=== PATIENT | male | born 1955 | race Caucasian/White ===

== ENCOUNTER 2021-05-15 00:16 | Inpatient (IN) | payer MEDICARE, OTHER ==
[~2021-05-15] VITALS: Ht 177.8 cm; Wt 71.2 kg
[~2021-05-15 00:16] MED LIST: ASPI81TA63 PO; CLOP75TA28 PO; SERT25TA84 PO; SIMV40TA2 PO
[2021-05-15 01:19] LABS: Urine WBC None Seen /hpf (0 - 3)
[2021-05-15] MEDS ORDERED: SODIUM CHLORIDE 0.9% 1,000 ML IV ONE ×2 (01:30)
[2021-05-15] MEDS ORDERED: AMIODARONE HCL (50 MG/ ML) 3 ML VIAL IV ONE (01:55)
[2021-05-15 01:56] LABS: Basophils # (auto) 0 10 ^3/uL (0-0.2); Basophils % (auto) 0.6 % (0.0-2.0); Eosinophils # (auto) 0.3 10 ^3/uL (0-0.8); Hematocrit 42.3 % (41.0-53.0); Hemoglobin 14.6 g/dL (13.5-17.5); Lymphocytes # (auto) 2.3 10 ^3/uL (0.4-5.4); Lymphocytes % (auto) 34.3 % (10.0-50.0); Mean Corpuscular Hemoglobin 33.2 pg (28.0-32.0); Mean Corpuscular Hgb Conc. 34.5 g/dL (32.0-36.0); Mean Corpuscular Volume 96.1 fL (80.0-100.0); Monocytes # (auto) 0.5 10 ^3/uL (0-1.3); Monocytes % (auto) 7.4 % (0.0-12.0); Neutrophils # (auto) 3.6 10 ^3/uL (1.6-8.6); Neutrophils % (auto) 53.7 % (37.0-80.0); Nucleated Red Blood Cells % 0.1 %; Red Blood Cells 4.41 10^6/uL (4.5-5.90); Red Cell Distribution Width 14.7 % (11.8-14.3); White Blood Cell 6.7 10^3/uL (4.4-10.8)
[2021-05-15] MEDS ORDERED: AMIODARONE HCL 150 MG in D5W 5% 100 ML IV ONE (02:00)
[2021-05-15 02:08] LABS: INR 1.02 (0.9-1.15); Partial Thromboplastin Time 27.2 sec (23.0-31.2)
[2021-05-15 02:19] LABS: Calcium 8.1 mg/dL (8.5-10.1); Chloride 112 mmol/L (98-107); Potassium 3.3 mmol/L (3.5-5.1); Sodium 141 mmol/L (136-145)
[2021-05-15 02:23] LABS: Alanine Aminotransferase 15 U/L (16-61); Albumin 3.3 g/dL (3.4-5.0); Anion Gap 9 (5-15); Aspartate Aminotransferase 12 U/L (15-37); BUN/Creatinine Ratio 18.3; Blood Urea Nitrogen 13 mg/dL (7-18); Carbon Dioxide 20 mmol/L (21-32); GFR African American 142 mL/min; GFR Non-African American 118 mL/min; Glucose 82 mg/dL (74-106)
[2021-05-15 02:29] LABS: Alkaline Phosphatase 54 U/L (45-117); Bilirubin, Total 0.2 mg/dL (0.2-1.0); Total Protein 5.8 g/dL (6.4-8.2)
[2021-05-15 03:14] LABS: Urine Bacteria FEW /hpf (None Seen); Urine Blood TRACE /uL (Negative); Urine Specific Gravity 1.003 (1.001-1.035)
[2021-05-15] MEDS ORDERED: POTASSIUM CHL 20MEQ/100ML 100 ML IV ONE (03:30)
[2021-05-15] MEDS ORDERED: POTASSIUM EFFERVESENT TAB 25 MEQ PO ONE (03:30)
[2021-05-15] MEDS ORDERED: AMIODARONE 450mg/250ml AE 250 ML IV SCH ×2 (04:15→11:45)
[2021-05-15] MEDS ORDERED: MORPHINE SULF INJ 2 MG/ML SYRINGE 1ML IV PRN (05:45)
[2021-05-15] MEDS ORDERED: NITROGLYCERIN 0.4 MG SL TAB SL PRN (05:45)
[2021-05-15] MEDS ORDERED: ONDANSETRON HCL 4 MG/2 ML VIAL IV PRN (05:45)
[2021-05-15] MEDS ORDERED: TEMAZEPAM 15 MG CAP PO PRN (05:45)
[2021-05-15 10:06] VITALS: BP 110/62
[2021-05-15] MEDS: CLOPIDOGREL BISULFATE 75 MG TAB PO SCH (10:12)
[2021-05-15] MEDS: PANTOPRAZOLE 40 MG TAB PO SCH (10:12)
[2021-05-15] MEDS: ASPirin 81 mg TAB PO SCH (10:12)
[2021-05-15] MEDS: ENOXAPARIN SOD 40 MG/0.4 ML SYRINGE SC SCH (10:13)
[2021-05-15] MEDS ORDERED: SERT-160 PO (10:15)
[2021-05-15] MEDS ORDERED: CHOL500021 PO (10:18)
[2021-05-15 10:27] VITALS: BP 110/62
[2021-05-15] MEDS ORDERED: SERTRALINE HCL 50 MG TAB PO ONE (11:30)
[2021-05-15] MEDS ORDERED: FOLIC ACID 1 MG TAB PO ONE (11:45)
[2021-05-15] MEDS ORDERED: THIAMINE HCL 100 MG TAB PO ONE (11:45)
[2021-05-15 13:03] VITALS: BP 117/57
[2021-05-15 14:09] LABS: Barbiturate Scree,Urine NEGATIVE (NEGATIVE)
[2021-05-15 14:12] LABS: Amphetamine Screen, Urine NEGATIVE (NEGATIVE); Benzodiazephine Screen, Urine NEGATIVE (NEGATIVE); Cannabinoid Screen, Urine NEGATIVE (NEGATIVE); Cocaine Screen, Urine NEGATIVE (NEGATIVE); Opiate Scree,Urine NEGATIVE (NEGATIVE); Phencyclidine Screen, Urine NEGATIVE (NEGATIVE)
[2021-05-15 16:44] VITALS: BP 117/63
[2021-05-15 20:00] VITALS: BP 116/68
[2021-05-15 22:00] VITALS: BP 116/68
[2021-05-15] MEDS ORDERED: ATORVASTATIN 20 MG TAB PO SCH (22:00)
[2021-05-16 05:00] VITALS: BP 120/64
[2021-05-16 06:21] LABS: Basophils # (auto) 0.1 10 ^3/uL (0-0.2); Basophils % (auto) 1.1 % (0.0-2.0); Eosinophils # (auto) 0.3 10 ^3/uL (0-0.8); Eosinophils % (auto) 4.6 % (0.0-7.0); Hematocrit 40.7 % (41.0-53.0); Hemoglobin 14.1 g/dL (13.5-17.5); Lymphocytes # (auto) 1.9 10 ^3/uL (0.4-5.4); Lymphocytes % (auto) 32.1 % (10.0-50.0); Mean Corpuscular Hemoglobin 33.2 pg (28.0-32.0); Mean Corpuscular Hgb Conc. 34.7 g/dL (32.0-36.0); Mean Corpuscular Volume 95.9 fL (80.0-100.0); Monocytes # (auto) 0.5 10 ^3/uL (0-1.3); Monocytes % (auto) 8.5 % (0.0-12.0); Neutrophils # (auto) 3.3 10 ^3/uL (1.6-8.6); Neutrophils % (auto) 53.7 % (37.0-80.0); Nucleated Red Blood Cells % 0.1 %; Red Blood Cells 4.24 10^6/uL (4.5-5.90); Red Cell Distribution Width 14.6 % (11.8-14.3); White Blood Cell 6.1 10^3/uL (4.4-10.8)
[2021-05-16 06:37] LABS: BUN/Creatinine Ratio 13.7; Calcium 8.4 mg/dL (8.5-10.1); Potassium 3.9 mmol/L (3.5-5.1)
[2021-05-16] MEDS: ASPirin 81 mg TAB PO SCH (09:54)
[2021-05-16] MEDS: PANTOPRAZOLE 40 MG TAB PO SCH (09:54)
[2021-05-16] MEDS: CLOPIDOGREL BISULFATE 75 MG TAB PO SCH (09:55)
[2021-05-16] MEDS: ENOXAPARIN SOD 40 MG/0.4 ML SYRINGE SC SCH (09:55)
[2021-05-16] MEDS ORDERED: THIAMINE HCL 100 MG TAB PO SCH (10:00)
[2021-05-16] MEDS ORDERED: AMIODARONE HCL 200 MG TAB PO SCH (10:00)
[2021-05-16] MEDS ORDERED: FOLIC ACID 1 MG TAB PO SCH (10:00)
[2021-05-16] MEDS ORDERED: SERTRALINE HCL 50 MG TAB PO SCH (10:00)
[2021-05-16 12:52] VITALS: BP 127/81
[2021-05-16 15:26] VITALS: BP 127/67
== END 2021-05-16 16:10 | disposition home or self-care (01) | DRG 309 ==
LOC: EDBD 00:16 → ER 00:38 → TELE 05:31 → TELE-CENTR 08:54
PROVIDERS: ADMIT Nurse Practitioner; ATTEND Family Medicine
DX: I48.91 Unspecified atrial fibrillation (principal); E44.0 Moderate protein-calorie malnutrition; D68.59 Other primary thrombophilia; E87.6 Hypokalemia; Z66 Do not resuscitate; Z20.822 Contact with and (suspected) exposure to COVID-19; F17.210 Nicotine dependence, cigarettes, uncomplicated; F32.9 Major depressive disorder, single episode, unspecified; I25.10 Atherosclerotic heart disease of native coronary artery without angina pectoris; I25.2 Old myocardial infarction; Z88.8 Allergy status to other drugs, medicaments and biological substances; Z79.01 Long term (current) use of anticoagulants; Z79.02 Long term (current) use of antithrombotics/antiplatelets; Z79.899 Other long term (current) drug therapy; Z79.82 Long term (current) use of aspirin; Z68.22 Body mass index [BMI] 22.0-22.9, adult; Z71.6 Tobacco abuse counseling
CPT/HCPCS: 36415; 71045; 80048; 80053; 80307; 81001; 83735; 83880; 84443; 84484; 85025; 85610; 85730; 87426; 93005; 93306; 96361; 96365; 96366; 96368; G0378; J3480; J7060

== ENCOUNTER 2022-04-18 14:53 | Emergency (ER) | payer OTHER ==
[~2022-04-18] VITALS: Ht 182.9 cm; Wt 81.6 kg
[~2022-04-18 14:53] MED LIST changes: -ASPI81TA63 PO; +CHOL500021 PO; +SERT-160 PO; -SERT25TA84 PO; -SIMV40TA2 PO
[2022-04-18] MEDS ORDERED: LIDOCAINE 1% (LOCAL ANESTH.) PF 5ml SDV ID ONE (16:45)
[2022-04-18] MEDS ORDERED: ONDANSETRON HCL 4 MG/2 ML VIAL IV ONE (17:30)
[2022-04-18] MEDS ORDERED: MORPHINE SULFATE 4 MG/ML SYR/VIAL IV ONE (17:30)
[2022-04-18 21:00] VITALS: BP 143/79
== END 2022-04-18 22:34 | disposition home or self-care (01) ==
LOC: ER 14:53 → EDBD 14:53 → ER 22:34
DX: S22.42XA Multiple fractures of ribs, left side, initial encounter for closed fracture (principal); J93.9 Pneumothorax, unspecified; S09.8XXA Other specified injuries of head, initial encounter; I11.0 Hypertensive heart disease with heart failure; I50.9 Heart failure, unspecified; J44.9 Chronic obstructive pulmonary disease, unspecified; F17.210 Nicotine dependence, cigarettes, uncomplicated; W18.09XA Striking against other object with subsequent fall, initial encounter; Y93.89 Activity, other specified; Y92.89 Other specified places as the place of occurrence of the external cause; Y99.8 Other external cause status
CPT/HCPCS: 32556; 70450; 71045; 71250; 72125; 73030; 96374; 96375; 99285; J2270; J2405

== ENCOUNTER 2025-07-01 15:00 | Inpatient (IN) | payer OTHER, MEDICAID ==
[~2025-07-01] VITALS: Ht 177.8 cm; Wt 61.0 kg
[~2025-07-01 15:00] MED LIST changes: +ATOR40TA52 PO; +BUPR-60 PO; +CLOP75TA70 PO; +TAMS0.4C39 PO; +TIOT17SP INH
--- NOTE | 2025-07-01 15:23 | ED.PDOC ---
General HPI Comments 69 y.o male with PMHx of [place], COPD, CHF, and HTN, presents to the ED for a chief complaint of abdominal distention due to the inability to void. Patient reports his home health nurse replaced his Macias catheter yesterday, noticed it was not draining so nurse came back this morning to replace it once again and states he continues to have no output. Patient now feels distention in his abdomen with heaviness sensation. He states that nurse noticed blood clots when changing the Macias today and advised him to come into the ED. Patient is on blood thinners but is unsure for what reason. He denies any urgency, dysuria, fever, chills, flank/back pain, nausea, vomiting, SOB or chest pain. Chief Complaint: Urinary Time Seen by MD: 15:13 Primary Care Provider: UNKNOWN Reviewed notes: Nurses Notes, Medications, Allergies Allergies: Coded Allergies: Isosorbide Nitrate (Verified Allergy, Mild, DIZZINESS, 01/08/14) Home Meds Reported Medications Cholecalciferol (VITAMIN D) 5,000 Unit Tab, 5000 UNIT PO DAILY, TAB 05/15/21 Sertraline Hcl (Sertraline Hcl) 100 Mg Tab, 100 MG PO DAILY, TAB 05/15/21 Clopidogrel Bisulfate (Plavix) 75 Mg Tab, 75 MG PO QAM, TAB 01/08/14 Information Source: Patient Mode of Arrival: Ambulatory Severity: Moderate Inability to void: None Timing: Days (2) Duration: Since onset Onset: Spontaneous Symptoms: Inability to void History of: Suprapubic catheter Location: Abdomen Modifying factors: None associated signs and symptoms: Inability to Void Past Medical History PAST MEDICAL HISTORY: CHF, COPD, HTN, [place] Surgical History: Denies all surgeries Family History Family History: Reviewed,noncontributory to illness Social History Smoker: Cigarettes, Less Than 1 Pack/Day Alcohol: Occasionally Drugs: Denies Drug Use Lives In: Home Constitutional: denies: chills, diaphoresis, fatigue, fever, malaise, sweats, weakness, others EENTM: denies: blurred vision, double vision, ear bleeding, ear discharge, ear drainage, ear pain, ear ringing, eye pain, eye redness, hearing loss, mouth pain, mouth swelling, nasal discharge, nose bleeding, nose congestion, nose pain, photophobia, tearing, throat pain, throat swelling, voice changes, others Respiratory: denies: cough, hemoptysis, orthopnea, SOB at rest, shortness of breath, SOB with excertion, stridor, wheezing, others Cardiovascular: denies: chest pain, dizzy spells, diaphoresis, Dyspnea on exertion, edema, irregular heart beat, left arm pain, lightheadedness, pal pitations, PND, syncope, others Gastrointestinal: reports: abdominal pain; denies: abdomen distended, blood streaked bowels, constipated, diarrhea, dysphagia, difficulty swallowing, hematemesis, melena, nausea, poor appetite, poor fluid intake, rectal bleeding, rectal pain, vomiting, others Genitourinary: reports: pain; denies: burning, dysuria, flank pain, frequency, hematuria, incontinence, penile discharge, penile sore, testicle pain, testicle swelling, urgency, others Neurological: denies: dizziness, fainting, headache, left sided numbness, left sided weakness, numbness, paresthesia, pre-existing deficit, right sided numbness, right sided weakness, seizure, speech problems, tingling, tremors, weakness, others Musculoskeletal: denies: back pain, gout, joint pain, joint swelling, muscle pain, muscle stiffness, neck pain, others Integumetry: denies: bruises, change in color, change in hair/nails, dryness, laceration, lesions, lumps, rash, wounds, others Allergic/Immunocompromised: denies: Difficulty Healing, Frequent Infections, Hives, Itching, others Hematologic/Lymphatic: denies: anemia, blood clots, easy bleeding, easy bruising, swollen glands, others Endocrine: denies: excessive hunger, excessive sweating, excessive thirst, excessive urination, flushing, intolerance to cold, intolerance to heat, unexplained weight gain, unexplained weight loss, others Psychiatric: denies: anxiety, bipolar disorder, depression, hopeless, panic disorder, schizophrenia, sleepless, suicidal, others All Other Systems: Reviewed and Negative Physical Exam General Appearance: Moderate Distress, Thin HEENT: Normal ENT Inspection, Pharynx Normal, TMs Normal Neck: Full Range of Motion, Non-Tender, Normal, Normal Inspection Respiratory: Chest Non-Tender, Lungs Clear, No Accessory Muscle Use, No Respiratory Distress, Normal Breath Sounds Cardiovascular: Irregular, No Edema, No JVD, No Murmur, No Gallop, Normal P eripheral Pulses, Tachycardia Breast Exam: Deferred Gastrointestinal: No Organomegaly, Non Tender, No Pulsatile Mass, Normal Bowel Sounds, Soft Genitalia: Deferred Pelvic: Deferred Rectal: Deferred Extremities: No calf tenderness, Normal capillary refill, Normal inspection, Normal range of motion, Non-tender, No pedal edema Musculoskeletal : Apperance: Normal Neurologic: Alert, case repairer II-XII nml as Tested, No Motor Deficits, Normal Affect, Normal Mood, No Sensory Deficits Cerebellar Function: NOT DONE Reflexes: NOT DONE Skin: Dry, Normal Color, Warm Peripheral Pulses: 3+ Radial (R), 3+ Radial (L) Lymphatic: No Adenopathy Was a procedure done? Was a procedure done?: No Differential Diagnosis Kidney stone (Female): N/A Urinary Problem (Male): Bladder Outlet, Bladder Obstruction, Urethritis, Urinary Retention, Urolithiasis, UTI X-Ray, Labs, Meds, VS Vital Signs Date Time Temp Pulse Resp B/P (MAP) Pulse Ox O2 Delivery O2 Flow Rate FiO2 07/01/25 15:02 98.2 118 18 132/95 95 98.2 Patient alert. Tachycardic. Urinary retention. Macias catheter in place. Has not drained since yesterday. Possible prostate problem. Saturation pristine on room air. Explained to the patient. Continue monitoring. Time of 1ST Reevaluation: 15:18 Reevaluation 1ST: Unchanged Patient Education/Counseling: Diagnosis, Treatment, Prognosis Family Education/Counseling: Diagnosis, Treatment, Prognosis SEPSIS Sepsis Screen Date sepsis recognized/suspect: Jul 01, 2025 Time Sepsis recognized/suspect: 1505 Recent Procedure: No On Antibiotic Therapy: No Respiratory Rate >20: No Heart Rate >90: No Temp<36 C (96.8 F) or >38.3 C: No SBP <90 or MAP <65 mmHG: No New Acute Mental Status Change: No Is the patient on CPAP, BIPAP,: No Physician Orders Complete Blood Count (07/01/25 15:18) Urinalysis (07/01/25 15:18) Basic Metabolic Panel (07/01/25 15:18) Sodium Chloride 0.9% (07/01/25 15:30) Ok To Change Macias (07/01/25 15:18) Vital Signs Date Time Temp Pulse Resp B/P (MAP) Pulse Ox O2 Delivery O2 Flow Rate FiO2 07/01/25 15:02 98.2 118 18 132/95 95 98.2 Departure 1 Departure Time of Disposition: 15:46 Impression: Primary Impression: Acute abdominal pain Additional Impressions: Prostate hypertrophy Atrial fibrillation with RVR Disposition: ADMITTED INPATIENT Admit to: Med Surg Condition: Guarded Critical Care Note Critical Care Time?: Yes (90 min-critical care time only) Stability Stability form required: No I personally scribed for MOO HALL MD ([email or web address]) on 07/01/25 at 15:23. Electronically submitted by Manuela Palacios ([facility]). MOO HALL MD Jul 01, 2025 15:23
[2025-07-01 15:58] LABS: Hematocrit 41.1 % (41.0-53.0); Hemoglobin 13.7 g/dL (13.5-17.5); Mean Corpuscular Hemoglobin 30.9 pg (28.0-32.0); Mean Corpuscular Volume 93.1 fL (80.0-100.0); Nucleated Red Blood Cells % 0.0 %
[2025-07-01] MEDS: SODIUM CHLORIDE 0.9% 1,000 ML IV ONE (16:03)
[2025-07-01 16:05] LABS: Chloride 99 mmol/L (98-107); Potassium 4.4 mmol/L (3.5-5.1)
[2025-07-01 16:06] LABS: Anion Gap 16 (5-15)
[2025-07-01 16:07] LABS: Calcium 9.3 mg/dL (8.7-10.4)
[2025-07-01 16:12] LABS: BUN/Creatinine Ratio 9.1 (10.0-20.0); Blood Urea Nitrogen 15 mg/dL (9-23)
[2025-07-01 16:20] LABS: Carbon Dioxide 20 mmol/L (20-31); Glucose 61 mg/dL (74-106); Sodium 135 mmol/L (136-145)
[2025-07-01 16:25] VITALS: PULSE 77; RESP 17; O2SAT 94
[2025-07-01 23:29] LABS: Hematocrit 39.2 % (41.0-53.0); Hemoglobin 12.9 g/dL (13.5-17.5); Mean Corpuscular Hemoglobin 31.2 pg (28.0-32.0); Mean Corpuscular Volume 94.7 fL (80.0-100.0); Nucleated Red Blood Cells % 0.1 %
[2025-07-01 23:42] LABS: Alanine Aminotransferase 27 U/L (7-40); Albumin 4.1 g/dL (3.2-4.8); Alkaline Phosphatase 84 U/L (46-116); Anion Gap 18 (5-15); BUN/Creatinine Ratio 10.9 (10.0-20.0); Blood Urea Nitrogen 19 mg/dL (9-23); Calcium 9.3 mg/dL (8.7-10.4); Chloride 102 mmol/L (98-107); Potassium 4.7 mmol/L (3.5-5.1); Sodium 137 mmol/L (136-145); Total Protein 6.4 g/dL (5.7-8.2)
[2025-07-01 23:43] LABS: Bilirubin, Total 0.9 mg/dL (0.2-1.0)
--- NOTE | 2025-07-01 23:46 | DVHHPRES ---
History of Present Illness Resident Creating Document: ALLIE ZAMBRANO RESIDENT History of Present Illness Patient is a 69-year-old male with past medical history of [place] without percutaneous intervention, COPD, questionable CHF, hypertension, who came in due to urinary retention. According to the patient, 2 weeks ago he was hospitalized at [facility] for pneumonia, at the time of discharge he was unable to urinate and was discharged home with a Macias catheter along with home health for Macias catheter management. Per patient, yesterday on 06/30/2025 his home health nurse replace the Macias catheter and ever since he has not been able to void. On review of systems patient is complaining of nausea, inability to void and abdominal pain. Patient is A&O x3, however somewhat of a poor historian and unable to share why he is on Plavix. Past Medical History CHF, COPD, [place], hypertension Past Surgical History Denies Past Social History Smoking: Quit 1 month ago, prior to that was smoking 5 cigarettes per day for the last 10 years Alcohol: Occasionally Drugs: Denies Lives at home Review of Systems Constitutional: No: Fever, Chills, Sweats, Weakness, Malaise, Other Eyes: No: Pain, Vision change, Conjunctivae inflammation, Eyelid inflammation, Other, Redness ENT: No: Ear pain, Ear discharge, Nose pain, Nose discharge, Nose congestion, Mouth pain, Mouth swelling, Throat pain, Throat swelling, Other Respiratory: No: Cough, Dry, Shortness of breath, SOB with excertion, Wheezing, Hemoptysis, Pleuritic Pain, Sputum, Wheezing, Other Cardiovascular: No: Chest Pain, Palpitations, Orthopnea, Paroxysmal Noc. Dyspnea, Edema, Lt Headedness, Other Gastrointestinal: Nausea, Vomiting, Abdominal Pain; No: Diarrhea, Constipation, Melena, Hematochezia, Other Genitourinary: No Dysuria, No Frequency, No Incontinence, No Hematuria; R etention; No Other Musculoskeletal: No: other, neck pain, shoulder pain, arm pain, back pain, hand pain, leg pain, foot pain Skin: No: Rash, Lesions, Jaundice, Bruising, Other Neurological: No: Weakness, Numbness, Incoordination, Change in speech, Confusion, Seizures, Other Allergies: Coded Allergies: Isosorbide Nitrate (Verified Allergy, Mild, DIZZINESS, 01/08/14) Medications Current Medications Medications Dose Ordered Sig/Malissa Route Start Time Stop Time Status Last Admin Dose Admin Clopidogrel Bisulfate 75 mg QAM PO 07/02/25 07:00 Sertraline HCl 100 mg DAILY PO 07/02/25 10:00 Exam Vital Signs Vital Signs Date Time Temp Pulse Resp B/P (MAP) Pulse Ox O2 Delivery O2 Flow Rate FiO2 07/01/25 21:52 97.9 94 17 131/50 (77) 97 97.9 07/01/25 16:25 Room Air* 0 21 General Appearance: Alert, Oriented X3, Cooperative, mild distress HEENT: Atraumatic, PERRLA, EOMI Respiratory: Clear to auscultation, Normal air movement Cardiovascular: Regular rate, Normal S1, Normal S2 Abdominal: Normal bowel sounds, Other (Tenderness to palpation in the lower abdomen) Skin: No rashes, No significant lesion Neuro: Normal speech Psych/Mental Status: Mental status NL Labs/Xrays Labs Test 07/01/25 22:48 07/01/25 15:34 Range/Units White Blood Count 12.8 H 4.4-10.8 10^3/uL Red Blood Count 4.14 L 4.5-5.90 10^6/uL Hemoglobin 12.9 L 13.5-17.5 g/dL Hematocrit 39.2 L 41.0-53.0 % Mean Corpuscular Volume 94.7 80.0-100.0 fL Mean Corpuscular Hemoglobin 31.2 28.0-32.0 pg Mean Corpuscular Hemoglobin Concent 32.9 32.0-36.0 g/dL Red Cell Distribution Width 16.0 H 11.8-14.3 % Platelet Count 227 140-450 10^3/uL Mean Platelet Volume 8.6 6.9-10.8 fL Neutrophils (%) (Auto) 84.2 H 37.0-80.0 % Lymphocytes (%) (Auto) 6.7 L 10.0-50.0 % Monocytes (%) (Auto) 8.7 0.0-12.0 % Eosinophils (%) (Auto) 0.1 0.0-7.0 % Basophils (%) (Auto) 0.3 0.0-2.0 % Neutrophils # (Auto) 10.8 H 1.6-8.6 10 ^3/uL Lymphocytes # (Auto) 0.9 0.4-5.4 10 ^3/uL Monocytes # (Auto) 1.1 0-1.3 10 ^3/uL Eosinophils # (Auto) 0 0-0.8 10 ^3/uL Basophils # (Auto) 0 0-0.2 10 ^3/uL Nucleated Red Blood Cells 0.1 % SEPSIS Sepsis Screen Date sepsis recognized/suspect: Jul 01, 2025 Time Sepsis recognized/suspect: 1504 Recent Procedure: No On Antibiotic Therapy: No Respiratory Rate >20: No Heart Rate >90: No Temp<36 C (96.8 F) or >38.3 C: No SBP <90 or MAP <65 mmHG: No New Acute Mental Status Change: No Is the patient on CPAP, BIPAP,: No Physician Orders Admit (07/01/25 21:37) Allergies (07/01/25 21:37) Code Status (07/01/25 21:37) Complete Blood Count (07/02/25 04:00) Comprehensive Metabolic Panel (07/02/25 04:00) Cardiac Diet-2gna,Lofat,Lochol (07/02/25 Breakfast) Condition: Unstable (07/01/25 21:37) Notify Md Of Changes From Base (07/01/25 21:37) Bladder Scan (07/01/25 ) D/C Macias (07/01/25 21:37) Insert Macias Catheter QSHIFT (07/01/25 21:37) Psa Total+% Free (07/01/25 21:40) Comprehensive Metabolic Panel (07/01/25 22:37) Clopidogrel Bisulfate (Plavix) (07/02/25 07:00) Sertraline Hcl (Zoloft) (07/02/25 10:00) Pharmacy To Reconcile Home Med (07/01/25 22:37) Communication Order (07/01/25 22:37) Vital Signs Date Time Temp Pulse Resp B/P (MAP) Pulse Ox O2 Delivery O2 Flow Rate FiO2 07/01/25 21:52 97.9 94 17 131/50 (77) 97 97.9 07/01/25 20:38 97.9 94 18 122/74 (90) 99 97.9 07/01/25 18:23 98.0 97 18 108/51 (70) 98 98.0 07/01/25 16:25 77 17 94 Room Air* 0 21 07/01/25 16:00 97.9 108 16 93/63 (63) 93 97.9 Laboratory Tests Test 07/01/25 15:34 07/01/25 22:48 White Blood Count 11.2 10^3/uL (4.4-10.8) H 12.8 10^3/uL (4.4-10.8) H Medications Medications Dose Ordered Sig/Malissa Route Start Time Stop Time Status Last Admin Dose Admin Sodium Chloride 1,000 ml @ 1,000 mls/hr Q1H ONCE IV 07/01/25 15:30 07/01/25 16:29 DC 07/01/25 16:03 1,000 MLS/HR Assessment/Plan Assessment/Plan Acute urinary retention BELLA due to above/VMN Hematuria likely due to benign prostatic hyperplasia Obstructive nephropathy Acute complicated UTI Sepsis due to above - bladder scan revealed greater than 900 mL - replaced Macias, however minimal drainage of about 50 mL - manual irrigation with catheter tip syringe, we will consider CBI if manual irrigation fails - IV D5W with NS at 75 cc/hour, IV NS 1 L bolus - IV ceftriaxone - consulted Urology - ordered serum PSA COPD, currently stable - ipratropium albuterol med nebs as needed History of CHF, systolic versus diastolic Essential hypertension Coronary artery disease - ordered echocardiogram - ordered BNP - resumed home medication Plavix Depression, likely MDD - resumed home medication sertraline DVT prophylaxis: Currently holding as patient notes some blood clots by home health RN while exchanging the Macias yesterday Goals of care: Full code, discussed for >16 minutes on 07/01/2025 Plan discussed with patient Plan discussed with Dr. Bergeron Plan discussed with: Patient, Other (RN) My Orders Orders - ALLIE ZAMBRANO RESIDENT Procedure Category Date Status Time Admit ADMIT 07/01/25 Transmitted 21:37 Allergies RONDA 07/01/25 In Process 21:37 Code Status CODE 07/01/25 Transmitted 21:37 Complete Blood Count LAB 07/02/25 Verified 04:00 Comprehensive LAB 07/02/25 Verified Metabolic Panel 04:00 Cardiac DIET 07/02/25 Transmitted Diet-2gna,Lofat,Lochol Breakfast Condition: Unstable RONDA 07/01/25 In Process 21:37 Notify Of Changes RONDA 07/01/25 In Process From Base 21:37 Bladder Scan ED NURSING 07/01/25 Transmitted D/C Macias RONDA 07/01/25 In Process 21:37 Insert Macias Catheter RONDA 07/01/25 In Process 21:37 Psa Total+% Free LAB 07/01/25 In Process 21:40 Comprehensive LAB 07/01/25 In Process Metabolic Panel 22:37 Clopidogrel Bisulfate PHA 07/02/25 In Process (Plavix) 07:00 Sertraline Hcl PHA 07/02/25 In Process (Zoloft) 10:00 Pharmacy To Reconcile ORDERS 07/01/25 Transmitted Home Med 22:37 Communication Order ORDERS 07/01/25 Transmitted 22:37 Date of Service: Jul 01, 2025 Billing Provider: CATARINO BERGERON MD Common Visit Codes: [id number] INP/OBS CARE (HIGH) Secondary Visit Codes: [id number] CARE PLAN 30 MINUTES ALLIE ZAMBRANO RESIDENT Jul 01, 2025 23:46
[2025-07-01 23:59] LABS: Carbon Dioxide 17 mmol/L (20-31)
[2025-07-02] VITALS (11 sets, daily range): BP systolic 94–125; BP diastolic 45–69; PULSE 83–95; RESP 12–20; TEMP 97.8–99.2; O2SAT 94–97
[2025-07-02] LABS: Glucose 38 mg/dL (74-106)
[2025-07-02] MEDS ORDERED: IPRATROPIUM BROM 0.5 MG/2.5ML INH SOL NEB PRN (01:30)
[2025-07-02] MEDS ORDERED: ALBUTEROL SULF 2.5 MG/0.5ML(0.5%) NEB SOLN NEB PRN (01:30)
[2025-07-02 02:51] LABS: COVID19 ANTIGEN SOFIA FIA NEGATIVE (NEGATIVE)
[2025-07-02] MEDS: HYDROcodone-ACET 7.5/325MG TAB PO PRN (04:35)
[2025-07-02] MEDS: LIDOCAINE HCL 2% TOP JELLY 5ML TOP ONE (05:05)
[2025-07-02] MEDS: LIDOCAINE 2% TOPICAL JELLY 5 ML URJT TOP ONE (05:14)
--- NOTE | 2025-07-02 05:15 | POSTOP ---
Post-Operative Note Post-Operative Note Preop Diagnosis urinary retention Postop Diagnosis: same Operation performed complex cath Specimen none Anesthesia: Local Anesthesiologist: no Blood Loss(fluid mgmt) minimal Tourniquet Time na Surgeon Gina Joya Vacuum Frame Operator no Implant [address] using guide wire Complications & Mgmt no Date 07/02/25 Time 05:10 GINA JOYA MD Jul 02, 2025 05:15
[2025-07-02] MEDS: D5W/SOD CHLO 0.9% 1,000 ML IV ONE (05:36)
[2025-07-02] MEDS: TAMSULOSIN HYDROCHLORIDE 0.4 MG CAP PO ONE (05:48)
[2025-07-02 06:18] LABS: Urine Protein, UAD 1+ (Negative)
[2025-07-02] MEDS: CLOPIDOGREL BISULFATE 75 MG TAB PO SCH (07:00)
--- NOTE | 2025-07-02 07:46 | DVH ---
CHEST RADIOGRAPH Indication: sob Technique: Single frontal view of the chest was obtained COMPARISON: CHEST PORTABLE on DOS: 04/18/22, CHEST PORTABLE on DOS: 04/18/22, CXRP on DOS: 04/18/22, BRITANY ST WITHOUT CONTRAST on DOS: 04/18/22, CXRP on DOS: 04/18/22 FINDINGS: Lines and Tubes: None Lungs: Left upper lobe opacity. Pleura: No effusion. No pneumothorax. Cardiomediastinal contours: Unremarkable Bones: Chronic left rib fractures IMPRESSION: Subtle left upper lobe opacity. This may represent pneumonia
[2025-07-02 08:08] LABS: Hematocrit 33.3 % (41.0-53.0); Hemoglobin 11.3 g/dL (13.5-17.5); Mean Corpuscular Hemoglobin 31.6 pg (28.0-32.0); Mean Corpuscular Volume 93.4 fL (80.0-100.0); Nucleated Red Blood Cells % 0.0 %
[2025-07-02 08:26] LABS: Alanine Aminotransferase 27 U/L (7-40); Albumin 3.2 g/dL (3.2-4.8); Alkaline Phosphatase 64 U/L (46-116); Anion Gap 20 (5-15); BUN/Creatinine Ratio 13.3 (10.0-20.0); Bilirubin, Total 0.5 mg/dL (0.2-1.0); Blood Urea Nitrogen 22 mg/dL (9-23); Calcium 8.7 mg/dL (8.7-10.4); Chloride 101 mmol/L (98-107); Potassium 4.2 mmol/L (3.5-5.1); Sodium 136 mmol/L (136-145)
[2025-07-02 08:36] LABS: Carbon Dioxide 15 mmol/L (20-31); Glucose 69 mg/dL (74-106); Total Protein 5.3 g/dL (5.7-8.2)
[2025-07-02] MEDS: SERTRALINE HCL 50 MG TAB PO SCH (09:42)
[2025-07-02] MEDS: TAMSULOSIN HYDROCHLORIDE 0.4 MG CAP PO SCH (17:18)
--- NOTE | 2025-07-02 19:56 | DVHPN2 ---
Subjective Patient is seen at bedside, doing well. Reviewed: Care Plan Changes from previous H/P or p: No Changes General: Per HPI Eyes: No Pain, No Vision change, No Conjunctivae inflammation, No Eyelid inflammation, No Other, No Redness ENT: No Ear pain, No Ear discharge, No Nose pain, No Nose discharge, No Nose congestion, No Mouth pain, No Mouth swelling, No Throat pain, No Throat swelling, No Other Cardiovascular: No Chest Pain, No Palpitations, No Orthopnea, No Paroxysmal Noc. Dyspnea, No Edema, No Lt Headedness, No Other Respiratory: No Cough, No Dry, No Shortness of breath, No SOB with excertion, No Wheezing, No Hemoptysis, No Pleuritic Pain, No Sputum, No Other Gastrointestinal: Nausea, Vomiting, Abdominal Pain; No Diarrhea, No Constipation, No Melena, No Hematochezia, No Other Genitourinary: No Dysuria, No Frequency, No Incontinence, No Hematuria; R etention; No Other Musculoskeletal: No other, No neck pain, No shoulder pain, No arm pain, No back pain, No hand pain, No leg pain, No foot pain Skin: No Rash, No Lesions, No Jaundice, No Bruising, No Other Objective Vitals Vital Signs Date Time Temp Pulse Resp B/P (MAP) Pulse Ox O2 Delivery O2 Flow Rate FiO2 07/02/25 18:00 97 Room Air 0.0 07/02/25 18:00 21 07/02/25 17:00 98.3 91 16 95/45 (62) 98.3 Intake/Output Intake and Output 07/02/25 07:00 Intake Total 1356 ml Balance 1356 ml Intake Oral 356 ml IV Total 1000 ml Exam GEN: Healthy appearing, well-developed, NAD. HEENT: NC/AT; MMM. CV: RRR, no m/r/g. LUNGS: CTAB, no w/r/c. ABD: Soft, NT/ND, NBS, no masses or organomegaly. EXT: skin Warm, well perfused. no rashes. No clubbing, cyanosis, or edema. Genitourinary: Patient has Macias, Macias with clear with some pink tinge urine NEURO: Ambulating with no limitations. No focal deficits. Medications Current Medications Medications Dose Ordered Sig/Malissa Route Start Time Stop Time Status Last Admin Dose Admin Sertraline HCl 100 mg DAILY PO 07/02/25 10:00 07/02/25 09:42 100 MG Ceftriaxone Sodium 50 ml @ 100 mls/hr DAILY@09 IV 07/03/25 09:00 Ipratropium [place] 0.5 mg Q6HPRN PRN NEB 07/02/25 01:30 Albuterol 2.5 mg Q8HPRN PRN NEB 07/02/25 01:30 Tamsulosin HCl 0.4 mg QPM PO 07/02/25 18:00 07/02/25 17:18 0.4 MG Acetaminophen/ Hydrocodone Bitart 1 tab Q6HP PRN PO 07/02/25 04:15 07/02/25 04:35 1 TAB Laboratory Results Laboratory Tests 07/02/25 07:36 Chemistry Test 07/01/25 22:48 07/02/25 07:36 Albumin 4.1 g/dL (3.2-4.8) 3.2 g/dL (3.2-4.8) Calcium Level 9.3 mg/dL (8.7-10.4) 8.7 mg/dL (8.7-10.4) Total Protein 6.4 g/dL (5.7-8.2) 5.3 g/dL (5.7-8.2) L Cardiac Markers Test 07/01/25 22:48 B-Type Natriuretic Peptide 74.81 pg/mL (0-100) LFT Test 07/01/25 22:48 07/02/25 07:36 Alanine Aminotransferase (ALT) 27 U/L (7-40) 27 U/L (7-40) Alkaline Phosphatase 84 U/L (46-116) 64 U/L (46-116) Aspartate Amino Transferase (AST) 31 U/L (13-40) 30 U/L (13-40) Total Bilirubin 0.9 mg/dL (0.2-1.0) 0.5 mg/dL (0.2-1.0) Urinalysis Test 07/02/25 05:00 Urine Color Light-brown (Yellow) Urine Clarity Turbid (Clear) H Urine pH 6.0 (5.0-9.0) Urine Specific [place] 1.010 (1.001-1.035) Urine Protein 1+ (Negative) H Urine Ketones 1+ (Negative) H Urine Blood 3+ /uL (Negative) H Urine Nitrite Negative (Negative) Urine Bilirubin Negative (Negative) Urine Urobilinogen Normal mg/dL (Negative) Urine Leukocyte Esterase 3+ /uL (Negative) Urine RBC 1250 /hpf (0 - 3) Urine Microscopic WBC 547 /HPF (0-3) H Urine Squamous Epithelial Cells None seen /hpf (<5) Urine Bacteria Few /hpf (None Seen) H Urine Glucose Normal mg/dL (Normal) Microbiology Microbiology Date/Time Source Procedure Growth Status 07/02/25 02:00 Nose MRSA Screen - Final Complete Labs and/or images reviewed: Labs reviewed by me, Image(s) reviewed by me Assessment/Plan Assessment/Plan Patient is a 69-year-old male with past medical history of [place] without percutaneous intervention, COPD, questionable CHF, hypertension, who came in due to urinary retention. According to the patient, 2 weeks ago he was hospitalized at [facility] for pneumonia, at the time of discharge he was unable to urinate and was discharged home with a Macias catheter along with home health for Macias catheter management. Per patient, yesterday on 06/30/2025 his home health nurse replace the Macias catheter and ever since he has not been able to void. On review of systems patient is complaining of nausea, inability to void and abdominal pain. Patient is A&O x3, however somewhat of a poor historian and unable to share why he is on Plavix. 07/02: Patient is difficult urinary catheterization, unsuccessful x2 with bladder distended, positive on bladder scan, patient is symptomatic. Urology did procedure and inserted 3 way Amcias and CBI is continuing right now. We will continue to follow up with Urology. Continuing IV antibiotics. Acute urinary retention BELLA due to above/VMN Hematuria likely due to benign prostatic hyperplasia Obstructive nephropathy Acute complicated UTI Sepsis due to above COPD, currently stable History of CHF, systolic versus diastolic Essential hypertension Coronary artery disease Depression, likely MDD - replaced Macias - CBI - IV D5W with NS - IV ceftriaxone - consulted Urology - ipratropium albuterol med nebs as needed - ordered echocardiogram - ordered BNP - resumed home medication Plavix - resumed home medication sertraline Med surge Full code Plan discussed with: Patient Date of Service: Jul 02, 2025 Billing Provider: SNOW ROLDAN MD Common Visit Codes: [id number] INP/OBS CARE(HIGH) SNOW ROLDAN MD Jul 02, 2025 19:56
[2025-07-03] VITALS (11 sets, daily range): BP systolic 98–109; BP diastolic 50–80; PULSE 69–88; RESP 16–20; TEMP 97.8–98.6; O2SAT 94–98
[2025-07-03 07:21] LABS: Hematocrit 28.7 % (41.0-53.0); Hemoglobin 9.8 g/dL (13.5-17.5); Mean Corpuscular Hemoglobin 31.9 pg (28.0-32.0); Mean Corpuscular Volume 93.2 fL (80.0-100.0); Nucleated Red Blood Cells % 0.0 %
[2025-07-03 07:36] LABS: Alanine Aminotransferase 19 U/L (7-40); Alkaline Phosphatase 59 U/L (46-116); Anion Gap 14 (5-15); BUN/Creatinine Ratio 10.7 (10.0-20.0); Bilirubin, Total 0.3 mg/dL (0.2-1.0); Blood Urea Nitrogen 13 mg/dL (9-23); Carbon Dioxide 22 mmol/L (20-31); Chloride 104 mmol/L (98-107); Potassium 3.7 mmol/L (3.5-5.1); Sodium 140 mmol/L (136-145)
[2025-07-03 07:47] LABS: Albumin 3.0 g/dL (3.2-4.8); Calcium 8.5 mg/dL (8.7-10.4); Glucose 71 mg/dL (74-106); Total Protein 5.0 g/dL (5.7-8.2)
--- NOTE | 2025-07-03 15:58 | DVHPN2 ---
Subjective Patient is seen at bedside, doing well. Reviewed: Care Plan Changes from previous H/P or p: No Changes General: Per HPI Eyes: No Pain, No Vision change, No Conjunctivae inflammation, No Eyelid inflammation, No Other, No Redness ENT: No Ear pain, No Ear discharge, No Nose pain, No Nose discharge, No Nose congestion, No Mouth pain, No Mouth swelling, No Throat pain, No Throat swelling, No Other Cardiovascular: No Chest Pain, No Palpitations, No Orthopnea, No Paroxysmal Noc. Dyspnea, No Edema, No Lt Headedness, No Other Respiratory: No Cough, No Dry, No Shortness of breath, No SOB with excertion, No Wheezing, No Hemoptysis, No Pleuritic Pain, No Sputum, No Other Gastrointestinal: Nausea, Vomiting, Abdominal Pain; No Diarrhea, No Constipation, No Melena, No Hematochezia, No Other Genitourinary: No Dysuria, No Frequency, No Incontinence, No Hematuria; R etention; No Other Musculoskeletal: No other, No neck pain, No shoulder pain, No arm pain, No back pain, No hand pain, No leg pain, No foot pain Skin: No Rash, No Lesions, No Jaundice, No Bruising, No Other Objective Vitals Vital Signs Date Time Temp Pulse Resp B/P (MAP) Pulse Ox O2 Delivery O2 Flow Rate FiO2 07/03/25 12:57 98.2 79 16 99/55 (70) 97 98.2 07/03/25 10:00 Room Air 0.0 07/03/25 10:00 21 Intake/Output Intake and Output 07/03/25 07:00 Intake Total 400 ml Output Total 1925 ml Balance -1525 ml Intake Oral 400 ml Output Urine Total 1925 ml Exam GEN: Healthy appearing, well-developed, NAD. HEENT: NC/AT; MMM. CV: RRR, no m/r/g. LUNGS: CTAB, no w/r/c. ABD: Soft, NT/ND, NBS, no masses or organomegaly. EXT: skin Warm, well perfused. no rashes. No clubbing, cyanosis, or edema. Genitourinary: Patient has Macias, Macias with clear with some pink tinge urine NEURO: Ambulating with no limitations. No focal deficits. Medications Current Medications Medications Dose Ordered Sig/Malissa Route Start Time Stop Time Status Last Admin Dose Admin Sertraline HCl 100 mg DAILY PO 07/02/25 10:00 07/03/25 09:56 100 MG Ceftriaxone Sodium 50 ml @ 100 mls/hr DAILY@09 IV 07/03/25 09:00 07/03/25 09:56 100 MLS/HR Ipratropium [place] 0.5 mg Q6HPRN PRN NEB 07/02/25 01:30 Albuterol 2.5 mg Q8HPRN PRN NEB 07/02/25 01:30 Tamsulosin HCl 0.4 mg QPM PO 07/02/25 18:00 07/02/25 17:18 0.4 MG Acetaminophen/ Hydrocodone Bitart 1 tab Q6HP PRN PO 07/02/25 04:15 07/02/25 04:35 1 TAB Laboratory Results Laboratory Tests 07/03/25 06:08 Chemistry Test 07/03/25 06:08 Albumin 3.0 g/dL (3.2-4.8) L Calcium Level 8.5 mg/dL (8.7-10.4) L Total Protein 5.0 g/dL (5.7-8.2) L LFT Test 07/03/25 06:08 Alanine Aminotransferase (ALT) 19 U/L (7-40) Alkaline Phosphatase 59 U/L (46-116) Aspartate Amino Transferase (AST) 25 U/L (13-40) Total Bilirubin 0.3 mg/dL (0.2-1.0) Urinalysis Test 07/02/25 05:00 Urine Color Light-brown (Yellow) Urine Clarity Turbid (Clear) H Urine pH 6.0 (5.0-9.0) Urine Specific [place] 1.010 (1.001-1.035) Urine Protein 1+ (Negative) H Urine Ketones 1+ (Negative) H Urine Blood 3+ /uL (Negative) H Urine Nitrite Negative (Negative) Urine Bilirubin Negative (Negative) Urine Urobilinogen Normal mg/dL (Negative) Urine Leukocyte Esterase 3+ /uL (Negative) Urine RBC 1250 /hpf (0 - 3) Urine Microscopic WBC 547 /HPF (0-3) H Urine Squamous Epithelial Cells None seen /hpf (<5) Urine Bacteria Few /hpf (None Seen) H Urine Glucose Normal mg/dL (Normal) Microbiology Microbiology Date/Time Source Procedure Growth Status 07/02/25 05:00 Voided Urine Urine Culture - Preliminary Resulted 07/02/25 02:00 Nose MRSA Screen - Final Complete Labs and/or images reviewed: Labs reviewed by me, Image(s) reviewed by me Assessment/Plan Assessment/Plan Patient is a 69-year-old male with past medical history of [place] without percutaneous intervention, COPD, questionable CHF, hypertension, who came in due to urinary retention. According to the patient, 2 weeks ago he was hospitalized at [facility] for pneumonia, at the time of discharge he was unable to urinate and was discharged home with a Macias catheter along with home health for Macias catheter management. Per patient, yesterday on 06/30/2025 his home health nurse replace the Macias catheter and ever since he has not been able to void. On review of systems patient is complaining of nausea, inability to void and abdominal pain. Patient is A&O x3, however somewhat of a poor historian and unable to share why he is on Plavix. 07/02: Patient is difficult urinary catheterization, unsuccessful x2 with bladder distended, positive on bladder scan, patient is symptomatic. Urology did procedure and inserted 3 way Macias and CBI is continuing right now. We will continue to follow up with Urology. Continuing IV antibiotics. 07/03: We will follow up with Urology 1 more day. Developed discharge plan with Urology by tomorrow likely discharge tomorrow. Acute urinary retention BELLA due to above/VMN Hematuria likely due to benign prostatic hyperplasia Obstructive nephropathy Acute complicated UTI Sepsis due to above COPD, currently stable History of CHF, systolic versus diastolic Essential hypertension Coronary artery disease Depression, likely MDD - replaced Macias - CBI - IV D5W with NS - IV ceftriaxone - consulted Urology - ipratropium albuterol med nebs as needed - ordered echocardiogram - ordered BNP - resumed home medication Plavix - resumed home medication sertraline Med surge Full code Plan discussed with: Patient Date of Service: Jul 03, 2025 Billing Provider: SNOW ROLDAN MD Common Visit Codes: [id number] INP/OBS CARE(HIGH) SNOW ROLDAN MD Jul 03, 2025 15:58
[2025-07-03] MEDS: IBUPROFEN 600 MG TAB PO ONE (18:45)
[2025-07-04] VITALS (10 sets, daily range): BP systolic 98–119; BP diastolic 59–69; PULSE 68–87; RESP 18–20; TEMP 97.7–98.5; O2SAT 95–98
[2025-07-04] MEDS: PANTOPRAZOLE 40 MG TAB PO SCH (05:17)
[2025-07-04] MEDS ORDERED: TAMSULOSIN HYDROCHLORIDE 0.4 MG CAP PO SCH (09:30)
--- NOTE | 2025-07-04 09:31 | DVHINCON2 ---
Date of service: Jul 04, 2025 Referring Physician Hospitalist Reason for Consultation urinary retention History of Present Illness History Source: Patient, RN Notes, MD Notes, Old Records Exam Limitations: No limitations HPI 69 yo male PMH anxiety, HLD, [place], CHF, COPD and AFIB on Eliquis presented with acute urinary retention and hematuria with blood clots. He was d/c from [facility] 06/03/[address]. While admitted at [facility] he was seen in consult by Dr. Joya who had recommended increasing his flomax to BID. He returned to [facility] 06/19 and 06/22 asking for giraldo to be removed. HHN attempted to exchange it unsuccessfully. On arrival he had >1 liter of retained urine. RNs were unable to place giraldo and Dr. Joya urologist associate application developer was notified. He place a 16f tribe tip over guidewire bedside. Creatinine has trended down since giraldo placement from 1.64 to 1.22. Hgb has dropped from 13.7 to 9.8. preliminary urine culture shows >100k CFU GNRs. His giraldo is draining light leona, eliquis has been held. Vitals are stable and he is afebrile and comfortable at this time. PT INR pending. last known PSA 01/19/24 2.0 Home Meds Reported Medications Cholecalciferol (VITAMIN D) 5,000 Unit Tab, 5000 UNIT PO DAILY, TAB 05/15/21 Sertraline Hcl (Sertraline Hcl) 100 Mg Tab, 100 MG PO DAILY, TAB 05/15/21 Clopidogrel Bisulfate (Plavix) 75 Mg Tab, 75 MG PO QAM, TAB 01/08/14 Past Medical History Cardiac: AFIB, CHF, [place] Pulmonary: COPD Psychiatric: Anxiety, Depression Renal/: Benign prostatic enlarg. Patient Family History: Cardiovascular disease G8 FATHER Chronic obstructive pulmonary disease G8 MOTHER Diabetes mellitus G8 MOTHER FH: lung cancer FH: smoking Smoker: No Hx (Negative) Alocohol: None Drugs: None Domestic Violence: Neg Review of Systems Genitourinary: Hematuria, Retention, Pain H&P Exam Vital Signs Vital Signs Date Time Temp Pulse Resp B/P (MAP) Pulse Ox O2 Delivery O2 Flow Rate FiO2 07/04/25 05:00 97.9 72 18 111/67 (82) 96 97.9 07/03/25 20:00 Room Air* 0 21 Labs/Xrays Labs Test 07/03/25 06:08 07/02/25 07:36 07/02/25 05:00 07/02/25 02:34 Range/Units White Blood Count 5.5 # 4.4-10.8 10^3/uL Red Blood Count 3.08 L 4.5-5.90 10^6/uL Hemoglobin 9.8 L 13.5-17.5 g/dL Hematocrit 28.7 #L 41.0-53.0 % Mean Corpuscular Volume 93.2 80.0-100.0 fL Mean Corpuscular Hemoglobin 31.9 28.0-32.0 pg Mean Corpuscular Hemoglobin Concent 34.3 32.0-36.0 g/dL Red Cell Distribution Width 16.1 H 11.8-14.3 % Platelet Count 188 140-450 10^3/uL Mean Platelet Volume 8.2 6.9-10.8 fL Neutrophils (%) (Auto) 77.2 37.0-80.0 % Lymphocytes (%) (Auto) 10.9 10.0-50.0 % Monocytes (%) (Auto) 9.5 0.0-12.0 % Eosinophils (%) (Auto) 1.7 0.0-7.0 % Basophils (%) (Auto) 0.7 0.0-2.0 % Neutrophils # (Auto) 4.3 1.6-8.6 10 ^3/uL Lymphocytes # (Auto) 0.6 0.4-5.4 10 ^3/uL Monocytes # (Auto) 0.5 0-1.3 10 ^3/uL Eosinophils # (Auto) 0.1 0-0.8 10 ^3/uL Basophils # (Auto) 0 0-0.2 10 ^3/uL Nucleated Red Blood Cells 0.0 % Sodium Level 140 136-145 mmol/L Potassium Level 3.7 3.5-5.1 mmol/L Chloride Level 104 98-107 mmol/L Carbon Dioxide Level 22 20-31 mmol/L Anion Gap 14 5-15 Blood Urea Nitrogen 13 9-23 mg/dL Creatinine 1.22 0.700-1.30 mg/dL Glomerular Filtration Rate Calc 63 >90 mL/min BUN/Creatinine Ratio 10.7 10.0-20.0 Serum Glucose 71 L 74-106 mg/dL Calcium Level 8.5 L 8.7-10.4 mg/dL Total Bilirubin 0.3 0.2-1.0 mg/dL Aspartate Amino Transferase (AST) 25 13-40 U/L Alanine Aminotransferase (ALT) 19 7-40 U/L Alkaline Phosphatase 59 46-116 U/L Total Protein 5.0 L 5.7-8.2 g/dL Albumin 3.0 L 3.2-4.8 g/dL Lactic Acid Level 0.5 0.4-2.0 mmol/L Urine Color Light-brown Yellow Urine Clarity Turbid H Clear Urine pH 6.0 5.0-9.0 Urine Specific [place] 1.010 1.001-1.035 Urine Protein 1+ H Negative Urine Ketones 1+ H Negative Urine Blood 3+ H Negative /uL Urine Nitrite Negative Negative Urine Bilirubin Negative Negative Urine Urobilinogen Normal Negative mg/dL Urine Leukocyte Esterase 3+ Negative /uL Urine RBC 1250 0 - 3 /hpf Urine Microscopic WBC 547 H 0-3 /HPF Urine Squamous Epithelial Cells None seen <5 /hpf Urine Bacteria Few H None Seen /hpf Urine Glucose Normal Normal mg/dL POC Glucose 89 70-106 mg/dl Test 07/01/25 23:59 07/01/25 22:48 07/01/25 15:34 Range/Units Influenza Type A Antigen Negative Negative Influenza Type B Antigen Negative Negative SARS-CoV-2 Antigen (Rapid) Negative NEGATIVE B-Type Natriuretic Peptide 74.81 0-100 pg/mL Microbiology Date/Time Source Procedure Growth Status 07/02/25 05:00 Voided Urine Urine Culture - Preliminary Resulted 07/02/25 02:00 Nose MRSA Screen - Final Complete Assessment/Plan Problem List: (1) UTI (urinary tract infection) (2) BELLA (acute kidney injury) (3) Anemia (4) Acute urinary retention (5) Nicotine dependence (6) Atrial fibrillation with RVR (7) Prostate hypertrophy Plan hold eliquis, must be held a minimum of 3 days prior to any surgical intervention keep giraldo treat UTI, no intervention until treated appropriately smoking cessation cystoscopy TBA Plan discussed with: Patient, Other SADA SEGURA NP Jul 04, 2025 09:31
[2025-07-04 10:22] LABS: INR 0.96 (0.9-1.15); Prothrombin Time 10.2 sec (9.3-11.8)
[2025-07-04] MEDS: FINASTERIDE 5 MG TAB PO SCH (10:24)
[2025-07-04] MEDS: TAMSULOSIN HYDROCHLORIDE 0.4 MG CAP PO SCH (10:24)
[2025-07-04 13:07] LABS: Prostate Specific Antigen 2.2 ng/mL (0.0-4.0)
--- NOTE | 2025-07-04 14:45 | DVHPN2 ---
Subjective Patient is seen at bedside, doing well. Reviewed: Care Plan Changes from previous H/P or p: No Changes General: Per HPI Eyes: No Pain, No Vision change, No Conjunctivae inflammation, No Eyelid inflammation, No Other, No Redness ENT: No Ear pain, No Ear discharge, No Nose pain, No Nose discharge, No Nose congestion, No Mouth pain, No Mouth swelling, No Throat pain, No Throat swelling, No Other Cardiovascular: No Chest Pain, No Palpitations, No Orthopnea, No Paroxysmal Noc. Dyspnea, No Edema, No Lt Headedness, No Other Respiratory: No Cough, No Dry, No Shortness of breath, No SOB with excertion, No Wheezing, No Hemoptysis, No Pleuritic Pain, No Sputum, No Other Gastrointestinal: Nausea, Vomiting, Abdominal Pain; No Diarrhea, No Constipation, No Melena, No Hematochezia, No Other Genitourinary: No Dysuria, No Frequency, No Incontinence, No Hematuria; R etention; No Other Musculoskeletal: No other, No neck pain, No shoulder pain, No arm pain, No back pain, No hand pain, No leg pain, No foot pain Skin: No Rash, No Lesions, No Jaundice, No Bruising, No Other Objective Vitals Vital Signs Date Time Temp Pulse Resp B/P (MAP) Pulse Ox O2 Delivery O2 Flow Rate FiO2 07/04/25 13:16 97.7 68 20 109/61 (77) 95 97.7 07/04/25 10:00 Room Air 0.0 07/04/25 10:00 21 Intake/Output Intake and Output 07/04/25 07:00 Intake Total 1450 ml Output Total 1250 ml Balance 200 ml Intake Oral 1400 ml IV Total 50 ml Output Urine Total 1250 ml Exam GEN: Healthy appearing, well-developed, NAD. HEENT: NC/AT; MMM. CV: RRR, no m/r/g. LUNGS: CTAB, no w/r/c. ABD: Soft, NT/ND, NBS, no masses or organomegaly. EXT: skin Warm, well perfused. no rashes. No clubbing, cyanosis, or edema. Genitourinary: Patient has Giraldo, Giraldo with clear with some pink tinge urine NEURO: Ambulating with no limitations. No focal deficits. Medications Current Medications Medications Dose Ordered Sig/Malissa Route Start Time Stop Time Status Last Admin Dose Admin Sertraline HCl 100 mg DAILY PO 07/02/25 10:00 07/04/25 09:33 100 MG Ceftriaxone Sodium 50 ml @ 100 mls/hr DAILY@09 IV 07/03/25 09:00 07/04/25 09:33 100 MLS/HR Ipratropium [place] 0.5 mg Q6HPRN PRN NEB 07/02/25 01:30 Albuterol 2.5 mg Q8HPRN PRN NEB 07/02/25 01:30 Acetaminophen/ Hydrocodone Bitart 1 tab Q6HP PRN PO 07/02/25 04:15 07/02/25 04:35 1 TAB Pantoprazole Sodium 40 mg DAILY@0600 PO 07/04/25 06:00 07/04/25 05:17 40 MG Finasteride 5 mg DAILY PO 07/04/25 10:00 07/04/25 10:24 5 MG Bupropion HCl 150 mg BID@07,19 PO 07/04/25 19:00 Tamsulosin HCl 0.4 mg BIDAC PO 07/04/25 10:08 07/04/25 10:24 0.4 MG Laboratory Results Laboratory Tests 07/03/25 06:08 Coagulation Test 07/04/25 09:44 Prothrombin Time 10.2 sec (9.3-11.8) Prothrombin Time INR 0.96 (0.9-1.15) Urinalysis Test 07/02/25 05:00 Urine Color Light-brown (Yellow) Urine Clarity Turbid (Clear) H Urine pH 6.0 (5.0-9.0) Urine Specific [place] 1.010 (1.001-1.035) Urine Protein 1+ (Negative) H Urine Ketones 1+ (Negative) H Urine Blood 3+ /uL (Negative) H Urine Nitrite Negative (Negative) Urine Bilirubin Negative (Negative) Urine Urobilinogen Normal mg/dL (Negative) Urine Leukocyte Esterase 3+ /uL (Negative) Urine RBC 1250 /hpf (0 - 3) Urine Microscopic WBC 547 /HPF (0-3) H Urine Squamous Epithelial Cells None seen /hpf (<5) Urine Bacteria Few /hpf (None Seen) H Urine Glucose Normal mg/dL (Normal) Microbiology Microbiology Date/Time Source Procedure Growth Status 07/02/25 05:00 Voided Urine Urine Culture - Preliminary Serratia marcescens Resulted 07/02/25 02:00 Nose MRSA Screen - Final Complete Labs and/or images reviewed: Labs reviewed by me, Image(s) reviewed by me Assessment/Plan Assessment/Plan Patient is a 69-year-old male with past medical history of [place] without percutaneous intervention, COPD, questionable CHF, hypertension, who came in due to urinary retention. According to the patient, 2 weeks ago he was hospitalized at [facility] for pneumonia, at the time of discharge he was unable to urinate and was discharged home with a Giraldo catheter along with home health for Giraldo catheter management. Per patient, yesterday on 06/30/2025 his home health nurse replace the Giraldo catheter and ever since he has not been able to void. On review of systems patient is complaining of nausea, inability to void and abdominal pain. Patient is A&O x3, however somewhat of a poor historian and unable to share why he is on Plavix. 07/02: Patient is difficult urinary catheterization, unsuccessful x2 with bladder distended, positive on bladder scan, patient is symptomatic. Urology did procedure and inserted [address] Giraldo and CBI is continuing right now. We will continue to follow up with Urology. Continuing IV antibiotics. 07/03: We will follow up with Urology 1 more day. Developed discharge plan with Urology by tomorrow likely discharge tomorrow. 07/04: continue UTI treatment. multiple episodes of giraldo malfunction, will need urlogy intervention, cystoscopy planned. Acute urinary retention BELLA due to above/VMN Hematuria likely due to benign prostatic hyperplasia Obstructive nephropathy Acute complicated UTI Sepsis due to above COPD, currently stable History of CHF, systolic versus diastolic Essential hypertension Coronary artery disease Depression, likely MDD - replaced Giraldo - IV D5W with NS - IV ceftriaxone - consulted Urology - ipratropium albuterol med nebs as needed - ordered echocardiogram - ordered BNP - resumed home medication Plavix - resumed home medication sertraline Med surge Full code Plan discussed with: Patient My Orders Orders - SNOW ROLDAN MD Procedure Category Date Status Time Pantoprazole Tablet PHA 07/04/25 In Process (Protonix Tablet) 06:00 Date of Service: Jul 04, 2025 Billing Provider: SNOW ROLDAN MD Common Visit Codes: [id number] INP/OBS CARE(HIGH) SNOW ROLDAN MD Jul 04, 2025 14:45
[2025-07-05] VITALS (10 sets, daily range): BP systolic 99–175; BP diastolic 64–95; PULSE 70–83; RESP 16–20; TEMP 97.5–98.1; O2SAT 93–96
[2025-07-05 05:53] LABS: Anion Gap 9 (5-15); Carbon Dioxide 29 mmol/L (20-31); Chloride 103 mmol/L (98-107); Sodium 141 mmol/L (136-145)
[2025-07-05 05:54] LABS: Calcium 8.9 mg/dL (8.7-10.4)
[2025-07-05 05:59] LABS: BUN/Creatinine Ratio 10.7 (10.0-20.0); Glucose 98 mg/dL (74-106)
[2025-07-05 06:00] LABS: Blood Urea Nitrogen 9 mg/dL (9-23); Potassium 3.4 mmol/L (3.5-5.1)
--- NOTE | 2025-07-05 09:27 | DVHPN2 ---
Subjective Patient is seen at bedside, doing well. Reviewed: Care Plan Changes from previous H/P or p: No Changes General: Per HPI Eyes: No Pain, No Vision change, No Conjunctivae inflammation, No Eyelid inflammation, No Other, No Redness ENT: No Ear pain, No Ear discharge, No Nose pain, No Nose discharge, No Nose congestion, No Mouth pain, No Mouth swelling, No Throat pain, No Throat swelling, No Other Cardiovascular: No Chest Pain, No Palpitations, No Orthopnea, No Paroxysmal Noc. Dyspnea, No Edema, No Lt Headedness, No Other Respiratory: No Cough, No Dry, No Shortness of breath, No SOB with excertion, No Wheezing, No Hemoptysis, No Pleuritic Pain, No Sputum, No Other Gastrointestinal: Nausea, Vomiting, Abdominal Pain; No Diarrhea, No Constipation, No Melena, No Hematochezia, No Other Genitourinary: No Dysuria, No Frequency, No Incontinence, No Hematuria; R etention; No Other Musculoskeletal: No other, No neck pain, No shoulder pain, No arm pain, No back pain, No hand pain, No leg pain, No foot pain Skin: No Rash, No Lesions, No Jaundice, No Bruising, No Other Objective Vitals Vital Signs Date Time Temp Pulse Resp B/P (MAP) Pulse Ox O2 Delivery O2 Flow Rate FiO2 07/05/25 08:00 75 18 93 Room Air* 0 21 07/05/25 07:35 97.5 112/65 (81) 97.5 Intake/Output Intake and Output 07/05/25 07:00 Intake Total 1010 ml Output Total 2000 ml Balance -990 ml Intake Oral 960 ml IV Total 50 ml Output Urine Total 2000 ml Exam GEN: Healthy appearing, well-developed, NAD. HEENT: NC/AT; MMM. CV: RRR, no m/r/g. LUNGS: CTAB, no w/r/c. ABD: Soft, NT/ND, NBS, no masses or organomegaly. EXT: skin Warm, well perfused. no rashes. No clubbing, cyanosis, or edema. Genitourinary: Patient has Giraldo, Giraldo with clear with some pink tinge urine NEURO: Ambulating with no limitations. No focal deficits. Medications Current Medications Medications Dose Ordered Sig/Malissa Route Start Time Stop Time Status Last Admin Dose Admin Sertraline HCl 100 mg DAILY PO 07/02/25 10:00 07/05/25 09:17 100 MG Ceftriaxone Sodium 50 ml @ 100 mls/hr DAILY@09 IV 07/03/25 09:00 07/05/25 09:17 100 MLS/HR Ipratropium [place] 0.5 mg Q6HPRN PRN NEB 07/02/25 01:30 Albuterol 2.5 mg Q8HPRN PRN NEB 07/02/25 01:30 Acetaminophen/ Hydrocodone Bitart 1 tab Q6HP PRN PO 07/02/25 04:15 07/02/25 04:35 1 TAB Pantoprazole Sodium 40 mg DAILY@0600 PO 07/04/25 06:00 07/05/25 05:39 40 MG Finasteride 5 mg DAILY PO 07/04/25 10:00 07/05/25 09:17 5 MG Tamsulosin HCl 0.4 mg BIDAC PO 07/04/25 10:08 07/05/25 05:39 0.4 MG Bupropion HCl 150 mg BID PO 07/04/25 22:00 07/05/25 09:17 150 MG Laboratory Results Laboratory Tests 07/03/25 06:08 07/05/25 05:15 Chemistry Test 07/05/25 05:15 Calcium Level 8.9 mg/dL (8.7-10.4) Coagulation Test 07/04/25 09:44 Prothrombin Time 10.2 sec (9.3-11.8) Prothrombin Time INR 0.96 (0.9-1.15) Urinalysis Test 07/02/25 05:00 Urine Color Light-brown (Yellow) Urine Clarity Turbid (Clear) H Urine pH 6.0 (5.0-9.0) Urine Specific [place] 1.010 (1.001-1.035) Urine Protein 1+ (Negative) H Urine Ketones 1+ (Negative) H Urine Blood 3+ /uL (Negative) H Urine Nitrite Negative (Negative) Urine Bilirubin Negative (Negative) Urine Urobilinogen Normal mg/dL (Negative) Urine Leukocyte Esterase 3+ /uL (Negative) Urine RBC 1250 /hpf (0 - 3) Urine Microscopic WBC 547 /HPF (0-3) H Urine Squamous Epithelial Cells None seen /hpf (<5) Urine Bacteria Few /hpf (None Seen) H Urine Glucose Normal mg/dL (Normal) Microbiology Microbiology Date/Time Source Procedure Growth Status 07/02/25 05:00 Voided Urine Urine Culture - Preliminary Serratia marcescens Resulted 07/02/25 02:00 Nose MRSA Screen - Final Complete Labs and/or images reviewed: Labs reviewed by me, Image(s) reviewed by me Assessment/Plan Assessment/Plan Patient is a 69-year-old male with past medical history of [place] without percutaneous intervention, COPD, questionable CHF, hypertension, who came in due to urinary retention. According to the patient, 2 weeks ago he was hospitalized at [facility] for pneumonia, at the time of discharge he was unable to urinate and was discharged home with a Giraldo catheter along with home health for Giraldo catheter management. Per patient, yesterday on 06/30/2025 his home health nurse replace the Giraldo catheter and ever since he has not been able to void. On review of systems patient is complaining of nausea, inability to void and abdominal pain. Patient is A&O x3, however somewhat of a poor historian and unable to share why he is on Plavix. 07/02: Patient is difficult urinary catheterization, unsuccessful x2 with bladder distended, positive on bladder scan, patient is symptomatic. Urology did procedure and inserted [address] way Giraldo and CBI is continuing right now. We will continue to follow up with Urology. Continuing IV antibiotics. 07/03: We will follow up with Urology 1 more day. Developed discharge plan with Urology by tomorrow likely discharge tomorrow. 07/04: continue UTI treatment. multiple episodes of giraldo malfunction, will need urlogy intervention, cystoscopy planned. 07/05:: Continue to treat patient's UTI, urine culture is growing Serratia resistant strain, sensitive to cefepime ertapenem gentamicin. We will change to ertapenem today. Urology following with plan for cystoscopy in intervention on delayed to 07/10/2025. We will get midline today, plan for ertapenem 1 g daily for 10 days. Social consult placed. Home health for IV antibiotics and resume Giraldo care. Diagnosis: Acute complicated UTI, , MDRO, Serratia marcescens Acute urinary retention BELLA due to above, obstructive nephropathy Hematuria likely due to benign prostatic hyperplasia Obstructive nephropathy Sepsis due to above COPD, currently stable History of CHF, systolic versus diastolic Essential hypertension Coronary artery disease Depression, likely MDD Plan: - replaced Giraldo - IV D5W with NS - IV ertapenem - consulted Urology - ipratropium albuterol med nebs as needed - ordered echocardiogram - ordered BNP - resumed home medication Plavix - resumed home medication sertraline Med surge Full code Plan discussed with: Patient Date of Service: Jul 05, 2025 Billing Provider: SNOW ROLDAN MD Common Visit Codes: [id number] INP/OBS CARE(HIGH) SNOW ROLDAN MD Jul 05, 2025 09:27
[2025-07-05] MEDS: ERTAPENEM SOD INJ 1 GM in SODIUM CHL 0.9% 50 ML IV SCH (13:54)
[2025-07-06] VITALS (11 sets, daily range): BP systolic 114–134; BP diastolic 55–68; PULSE 65–76; RESP 15–18; TEMP 36.6; O2SAT 94–96
[2025-07-06] MEDS ORDERED: ALBUTEROL SULF 2.5 MG/0.5ML(0.5%) NEB SOLN NEB PRN (05:45)
--- NOTE | 2025-07-06 13:01 | DVHDS2 ---
Discharge Summary Date of Admission Jul 01, 2025 at 21:37 Date of Discharge: Jul 06, 2025 Labs/Diagnostic Data: Laboratory Results Test 07/05/25 05:15 07/04/25 09:44 07/03/25 06:08 07/02/25 07:36 Sodium Level 141 mmol/L (136-145) Potassium Level 3.4 mmol/L (3.5-5.1) Chloride Level 103 mmol/L (98-107) Carbon Dioxide Level 29 mmol/L (20-31) Anion Gap 9 (5-15) Blood Urea Nitrogen 9 mg/dL (9-23) Creatinine 0.84 mg/dL (0.700-1.30) Glomerular Filtration Rate Calc 93 mL/min (>90) BUN/Creatinine Ratio 10.7 (10.0-20.0) Serum Glucose 98 mg/dL (74-106) Calcium Level 8.9 mg/dL (8.7-10.4) Prothrombin Time 10.2 sec (9.3-11.8) Prothrombin Time INR 0.96 (0.9-1.15) White Blood Count 5.5 10^3/uL (4.4-10.8) Red Blood Count 3.08 10^6/uL (4.5-5.90) Hemoglobin 9.8 g/dL (13.5-17.5) Hematocrit 28.7 % (41.0-53.0) Mean Corpuscular Volume 93.2 fL (80.0-100.0) Mean Corpuscular Hemoglobin 31.9 pg (28.0-32.0) Mean Corpuscular Hemoglobin Concent 34.3 g/dL (32.0-36.0) Red Cell Distribution Width 16.1 % (11.8-14.3) Platelet Count 188 10^3/uL (140-450) Mean Platelet Volume 8.2 fL (6.9-10.8) Neutrophils (%) (Auto) 77.2 % (37.0-80.0) Lymphocytes (%) (Auto) 10.9 % (10.0-50.0) Monocytes (%) (Auto) 9.5 % (0.0-12.0) Eosinophils (%) (Auto) 1.7 % (0.0-7.0) Basophils (%) (Auto) 0.7 % (0.0-2.0) Neutrophils # (Auto) 4.3 10 ^3/uL (1.6-8.6) Lymphocytes # (Auto) 0.6 10 ^3/uL (0.4-5.4) Monocytes # (Auto) 0.5 10 ^3/uL (0-1.3) Eosinophils # (Auto) 0.1 10 ^3/uL (0-0.8) Basophils # (Auto) 0 10 ^3/uL (0-0.2) Nucleated Red Blood Cells 0.0 % Total Bilirubin 0.3 mg/dL (0.2-1.0) Aspartate Amino Transferase (AST) 25 U/L (13-40) Alanine Aminotransferase (ALT) 19 U/L (7-40) Alkaline Phosphatase 59 U/L (46-116) Total Protein 5.0 g/dL (5.7-8.2) Albumin 3.0 g/dL (3.2-4.8) Lactic Acid Level 0.5 mmol/L (0.4-2.0) Test 07/02/25 05:00 07/02/25 02:34 07/01/25 23:59 07/01/25 22:48 Urine Color Light-brown (Yellow) Urine Clarity Turbid (Clear) Urine pH 6.0 (5.0-9.0) Urine Specific [place] 1.010 (1.001-1.035) Urine Protein 1+ (Negative) Urine Ketones 1+ (Negative) Urine Blood 3+ /uL (Negative) Urine Nitrite Negative (Negative) Urine Bilirubin Negative (Negative) Urine Urobilinogen Normal mg/dL (Negative) Urine Leukocyte Esterase 3+ /uL (Negative) Urine RBC 1250 /hpf (0 - 3) Urine Microscopic WBC 547 /HPF (0-3) Urine Squamous Epithelial Cells None seen /hpf (<5) Urine Bacteria Few /hpf (None Seen) Urine Glucose Normal mg/dL (Normal) POC Glucose 89 mg/dl (70-106) Influenza Type A Antigen Negative (Negative) Influenza Type B Antigen Negative (Negative) SARS-CoV-2 Antigen (Rapid) Negative (NEGATIVE) B-Type Natriuretic Peptide 74.81 pg/mL (0-100) Test 07/01/25 15:34 Free Prostate Specific Antigen 0.48 ng/mL (N/A) Percent Free Prostate Specific Ag 21.8 % (.) Prostate Specific Antigen Total 2.2 ng/mL (0.0-4.0) Other Laboratory Tests 07/05/25 05:15 07/03/25 06:08 Brief Hx & Hospital Course: Patient is a 69-year-old male with past medical history of GA without percutaneous intervention, COPD, questionable CHF, hypertension, who came in due to urinary retention. According to the patient, 2 weeks ago he was hospitalized at [facility] for pneumonia, at the time of discharge he was unable to urinate and was discharged home with a Giraldo catheter along with home health for Giraldo catheter management. Per patient, yesterday on 06/30/2025 his home health nurse replace the Giraldo catheter and ever since he has not been able to void. On review of systems patient is complaining of nausea, inability to void and abdominal pain. Patient is A&O x3, however somewhat of a poor historian and unable to share why he is on Plavix. 07/02: Patient is difficult urinary catheterization, unsuccessful x2 with bladder distended, positive on bladder scan, patient is symptomatic. Urology did procedure and inserted [address] way Giraldo and CBI is continuing right now. We will continue to follow up with Urology. Continuing IV antibiotics. 07/03: We will follow up with Urology 1 more day. Developed discharge plan with Urology by tomorrow likely discharge tomorrow. 07/04: continue UTI treatment. multiple episodes of giraldo malfunction, will need urlogy intervention, cystoscopy planned. 07/05:: Continue to treat patient's UTI, urine culture is growing Serratia resistant strain, sensitive to cefepime ertapenem gentamicin. We will change to ertapenem today. Urology following with plan for cystoscopy in intervention on delayed to 07/10/2025. We will get midline today, plan for ertapenem 1 g daily for 10 days. Social consult placed. Home health for IV antibiotics and resume Giraldo care. 07/06: Patient doing well, no bladder obstruction. patient can discharge today and finish IV antibiotics and follow up with Urology for outpatient procedure on 07/10/2025. Patient vital signs stable, stable for discharge as per plan below. Diagnosis: Acute complicated UTI, , MDRO, Serratia marcescens Acute urinary retention BELLA due to above, obstructive nephropathy Hematuria likely due to benign prostatic hyperplasia Obstructive nephropathy Sepsis due to above COPD, currently stable History of CHF, systolic versus diastolic Essential hypertension Coronary artery disease Depression, likely MDD Discharge plan: - Continuing IV antibiotic ertapenem 1 g daily, through midline, until 07/15/2025 . Home health to help patient with IV infusions. - Continue Giraldo with leg bag - Urological procedure on 07/10/2025, as outpatient surgical services - extra flushes we will be given, flush Giraldo as needed to relieve any obstructions. - Continue other home medications Condition at Discharge: Fair Final Diagnosis/Problems List Acute complicated UTI, , MDRO, Serratia marcescens Acute urinary retention BELLA due to above, obstructive nephropathy Hematuria likely due to benign prostatic hyperplasia Obstructive nephropathy Sepsis due to above COPD, currently stable History of CHF, systolic versus diastolic Essential hypertension Coronary artery disease Depression, likely MDD Discharge Disposition: Home with Health Services Discharge Instruct/Medications Diet: Cardiac 2g Na,low cholest Activity: No Restrictions, As Tolerated Follow Up/Referral: Below Medications: See below Scheduled Atorvastatin Calcium (Atorvastatin Calcium), 1 TAB PO DAILY, (Reported) Bupropion Hcl (Bupropion Hcl Sr), 1 TAB PO BID, (Reported) Clopidogrel Bisulfate (Clopidogrel), 1 TAB PO DAILY, (Reported) Sertraline Hcl (Sertraline Hcl), 1 TAB PO DAILY, (Reported) Tamsulosin Hcl (Tamsulosin Hcl), 2 CAP PO DAILY, (Reported) Tiotropium [place] Monohydrate (Spiriva Respimat), 2 PUFF INH DAILY, (Reported) Discharge Statement: "Patient was advised to return to the ER or call 911 if any headaches, dizziness, shortness of breath, chest pain, abdominal pain, bleeding, fevers, or worsening of medical condition. Patient was counseled about treatment plan, medications, possible side effects, patientverbalized understanding. All questions were answered to the best of my ability. This discharge took greater then 30 minutes in planning, reviewing documentation, counseling the patient, and discussing with other team members." Date of Service: Jul 06, 2025 Billing Provider: SNOW ROLDAN MD Common Visit Codes: 01214-JXG/OBS DISCH DAY >30min SNOW ROLDAN MD Jul 06, 2025 13:01
== END 2025-07-06 17:15 | disposition home health service (06) | DRG 871 ==
LOC: ER 15:00 → OVERFLOW 21:37 → CENTRAL 07-02 22:37
PROVIDERS: ADMIT Student in an Organized Health Care Education/Training Program; ATTEND Student in an Organized Health Care Education/Training Program
PROC: 05HB33Z Insertion of Infusion Device into Right Basilic Vein, Percutaneous Approach (ICD-10-PCS; principal; 2025-07-05)
PROC: B54MZZA Ultrasonography of Right Upper Extremity Veins, Guidance (ICD-10-PCS; 2025-07-05)
DX: A41.9 Sepsis, unspecified organism (principal); N17.0 Acute kidney failure with tubular necrosis; I50.22 Chronic systolic (congestive) heart failure; N39.0 Urinary tract infection, site not specified; N13.8 Other obstructive and reflux uropathy; Z16.24 Resistance to multiple antibiotics; I11.0 Hypertensive heart disease with heart failure; J44.9 Chronic obstructive pulmonary disease, unspecified; F32.9 Major depressive disorder, single episode, unspecified; N40.0 Benign prostatic hyperplasia without lower urinary tract symptoms; I25.10 Atherosclerotic heart disease of native coronary artery without angina pectoris; B96.89 Other specified bacterial agents as the cause of diseases classified elsewhere; F41.9 Anxiety disorder, unspecified; I48.91 Unspecified atrial fibrillation; F17.210 Nicotine dependence, cigarettes, uncomplicated; E78.5 Hyperlipidemia, unspecified; R31.9 Hematuria, unspecified; I25.2 Old myocardial infarction; Z82.49 Family history of ischemic heart disease and other diseases of the circulatory system; Z79.02 Long term (current) use of antithrombotics/antiplatelets; Z79.01 Long term (current) use of anticoagulants; Z83.3 Family history of diabetes mellitus; Z80.1 Family history of malignant neoplasm of trachea, bronchus and lung
CPT/HCPCS: 36415; 71045; 80048; 80053; 81001; 82962; 83605; 83880; 84154; 85025; 85610; 87081; 87086; 87088; 87186; 87426; 87804; 96360; 99291; G0378; J1335

== ENCOUNTER 2025-09-17 11:54 | Emergency (ER) | payer OTHER ==
[~2025-09-17] VITALS: Ht 177.8 cm; Wt 61.5 kg
[~2025-09-17 11:54] MED LIST changes: -CHOL500021 PO; -CLOP75TA28 PO
--- NOTE | 2025-09-17 12:27 | ED.PDOC ---
History of Present Illness HPI Comments 70-year-old male presents to the ER with prior medical history of CHF, COPD, hypertension, ND chief complaint of urinary symptoms. He reports when having had is Macias catheter removed two days ago by his urologist and did a cystoscopy were it was normal. Patient states on not being able to urinate since 10:00 p.m. last night, and still not able to. Denies any other symptoms at this time. Denies chills, fever, N/V/D, SOB, CP. No other associated symptoms, modifiers, recent injuries or sick contacts present at this time. Chief Complaint: Urinary Time Seen by MD: 12:00 Primary Care Provider: UNKNOWN Reviewed Notes: Nurses Notes, Medications, Allergies Allergies: Coded Allergies: Isosorbide Nitrate (Verified Allergy, Mild, DIZZINESS, 01/08/14) Home Meds Reported Medications Tiotropium [place] Monohydrate (Spiriva Respimat) 2.5 Mcg/Act Spr, 2 PUFF INH DAILY for 90 Days, #12 07/04/25 Atorvastatin Calcium (ATORVASTATIN CALCIUM) 40 Mg Tab, 1 TAB PO DAILY for 90 Days, #90 07/04/25 Clopidogrel Bisulfate (CLOPIDOGREL) 75 Mg Tab, 1 TAB PO DAILY for 90 Days, #90 07/04/25 Bupropion Hcl (Bupropion Hcl Sr) 150 Mg Tab, 1 TAB PO BID for 90 Days, #180 07/04/25 Tamsulosin Hcl (Tamsulosin Hcl) 0.4 Mg Cap, 2 CAP PO DAILY for 30 Days, #60 07/04/25 Sertraline Hcl (Sertraline Hcl) 100 Mg Tab, 1 TAB PO DAILY for 90 Days, #90 05/15/21 Information Source: Patient Mode of Arrival: Ambulatory Severity: Moderate Timing: Hours Duration: Since onset, Hours Prehospital treatment: None Past Medical History PAST MEDICAL HISTORY: CHF, COPD, HTN, ND Surgical History: Denies all surgeries Family History Family History: Reviewed,noncontributory to illness, Unknown Social History Smoker: Cigarettes, Less Than 1 Pack/Day Alcohol: Occasionally Drugs: Denies Drug Use Lives In: Home Constitutional: denies: chills, diaphoresis, fatigue, fever, malaise, sweats, weakness, others EENTM: denies: blurred vision, double vision, ear bleeding, ear discharge, ear drainage, ear pain, ear ringing, eye pain, eye redness, hearing loss, mouth pain, mouth swelling, nasal discharge, nose bleeding, nose congestion, nose pain, photophobia, tearing, throat pain, throat swelling, voice changes, others Respiratory: denies: cough, hemoptysis, orthopnea, SOB at rest, shortness of breath, SOB with excertion, stridor, wheezing, others Cardiovascular: denies: chest pain, dizzy spells, diaphoresis, Dyspnea on exertion, edema, irregular heart beat, left arm pain, lightheadedness, palpitations, PND, syncope, others Gastrointestinal: denies: abdomen distended, abdominal pain, blood streaked bowels, constipated, diarrhea, dysphagia, difficulty swallowing, hematemesis, melena, nausea, poor appetite, poor fluid intake, rectal bleeding, rectal pain, vomiting, others Genitourinary: reports: others (Patient is unable to urinate); denies: burning, dysuria, flank pain, frequency, hematuria, incontinence, penile discharge, penile sore, pain, testicle pain, testicle swelling, urgency Neurological: denies: dizziness, fainting, headache, left sided numbness, left sided weakness, numbness, paresthesia, pre-existing deficit, right sided numbness, right sided weakness, seizure, speech problems, tingling, tremors, weakness, others Musculoskeletal: denies: back pain, gout, joint pain, joint swelling, muscle pain, muscle stiffness, neck pain, others Integumetry: denies: bruises, change in color, change in hair/nails, dryness, laceration, lesions, lumps, rash, wounds, others Allergic/Immunocompromised: denies: Difficulty Healing, Frequent Infections, Hives, Itching, others Hematologic/Lymphatic: denies: anemia, blood clots, easy bleeding, easy bruising, swollen glands, others Endocrine: denies: excessive hunger, excessive sweating, excessive thirst, excessive urination, flushing, intolerance to cold, intolerance to heat, unexplained weight gain, unexplained weight loss, others Psychiatric: denies: anxiety, bipolar disorder, depression, hopeless, panic disorder, schizophrenia, sleepless, suicidal, others All Other Systems: Reviewed and Negative Physical Exam Exam Comments Suprapubic tenderness General Appearance: No Apparent Distress, Normal HEENT: Normal ENT Inspection, Pharynx Normal, TMs Normal Neck: Full Range of Motion, Non-Tender, Normal, Normal Inspection Respiratory: Chest Non-Tender, Lungs Clear, No Accessory Muscle Use, No Respiratory Distress, Normal Breath Sounds Cardiovascular: No Edema, No JVD, No Murmur, No Gallop, Normal Peripheral Pulses, Regular Rate/Rhythm Breast Exam: Deferred Gastrointestinal: No Organomegaly, Non Tender, No Pulsatile Mass, Normal Bowel Sounds, Soft Genitalia: Deferred Pelvic: Deferred Rectal: Deferred Extremities: No calf tenderness, Normal capillary refill, Normal inspection, Normal range of motion, Non-tender, No pedal edema Musculoskeletal : Apperance: Normal Neurologic: Alert, head bellhop captain II-XII nml as Tested, No Motor Deficits, Normal Affect, Normal Mood, No Sensory Deficits Cerebellar Function: Normal Reflexes: Normal Skin: Dry, Normal Color, Warm Lymphatic: No Adenopathy Was a procedure done? Was a procedure done?: No Differential Dx Considerations may include: Acute urinary retention X-Ray, Labs, Meds, VS Vital Signs Date Time Temp Pulse Resp B/P (MAP) Pulse Ox O2 Delivery O2 Flow Rate FiO2 09/17/25 13:42 97.8 93 16 138/72 (94) 99 97.8 09/17/25 13:42 93 16 99 Room Air 09/17/25 11:56 97.3 106 15 142/72 98 97.3 Lab Test 09/17/25 13:40 Range/Units Urine Color Light-yellow Yellow Urine Clarity Clear Clear Urine pH 6.5 5.0-9.0 Urine Specific [place] 1.015 1.001-1.035 Urine Protein Negative Negative Urine Ketones Negative Negative Urine Blood Negative Negative /uL Urine Nitrite Negative Negative Urine Bilirubin Negative Negative Urine Urobilinogen Normal Negative mg/dL Urine Leukocyte Esterase 1+ Negative /uL Urine RBC 3 0 - 3 /hpf Urine Microscopic WBC 21 H 0-3 /HPF Urine Squamous Epithelial Cells None seen <5 /hpf Urine Bacteria None seen None Seen /hpf Urine Glucose Normal Normal mg/dL Time of 1ST Reevaluation: 12:30 Reevaluation 1ST: Unchanged Patient Education/Counseling: Diagnosis, Treatment, Prognosis Family Education/Counseling: No Family Present SEPSIS Sepsis Screen Date sepsis recognized/suspect: Sep 17, 2025 Time Sepsis recognized/suspect: 1157 Recent Procedure: No On Antibiotic Therapy: No Respiratory Rate >20: No Heart Rate >90: Yes Temp<36 C (96.8 F) or >38.3 C: No SBP <90 or MAP <65 mmHG: No New Acute Mental Status Change: No Is the patient on CPAP, BIPAP,: No Physician Orders Insert Macias Catheter QSHIFT (09/17/25 12:14) Urine Bacterial Culture (09/17/25 13:51) Vital Signs Date Time Temp Pulse Resp B/P (MAP) Pulse Ox O2 Delivery O2 Flow Rate FiO2 09/17/25 13:42 97.8 93 16 138/72 (94) 99 97.8 09/17/25 13:42 93 16 99 Room Air 09/17/25 11:56 97.3 106 15 142/72 98 97.3 Departure 1 Departure Time of Disposition: 15:14 (Patient had acute urinary retention. Patient had Macias catheter placed. Patient had good return. Discharge patient home with urology follow up) Impression: Primary Impression: Acute urinary retention Disposition: 01 HOME / SELF CARE / HOMELESS Condition: Stable Additional Instructions: You had a catheter placed today. It is important to follow up with your urologist. Discharged With: Self Critical Care Note Critical Care Time?: No Stability Stability form required: No I personally scribed for KEITH POLLOCK MD ([email or web address]) on 09/17/25 at 12:27. Electronically submitted by Romeo Cortes ([email or web address]). KEITH POLLOCK MD Sep 17, 2025 12:27
[2025-09-17 13:42] VITALS: BP 138/72; PULSE 93; RESP 16; TEMP 97.8; O2SAT 99
[2025-09-17 14:28] LABS: Urine Protein, UAD Negative (Negative)
== END 2025-09-17 15:59 | disposition home or self-care (01) ==
LOC: ER 11:54
DX: R33.9 Retention of urine, unspecified (principal); F17.210 Nicotine dependence, cigarettes, uncomplicated; F10.90 Alcohol use, unspecified, uncomplicated; I11.0 Hypertensive heart disease with heart failure; I50.9 Heart failure, unspecified; J44.9 Chronic obstructive pulmonary disease, unspecified; I25.2 Old myocardial infarction; Z79.899 Other long term (current) drug therapy; Z79.02 Long term (current) use of antithrombotics/antiplatelets
CPT/HCPCS: 51702; 81001; 87086; 99284; A4315